=== PATIENT | male | born 2005 | race Hispanic/Latino ===

== ENCOUNTER 2024-08-23 16:13 | Inpatient (IN) | payer OTHER ==
[~2024-08-23] VITALS: Ht 180.3 cm; Wt 73.0 kg
[2024-08-23 17:06] LABS: HEMATOCRIT 42.5 % (42.0-52.0); HEMOGLOBIN 14.8 g/dl (13.5-17.5); MEAN CORPUSCULAR HEMOGLOBIN 32.1 pg (27.0-33.0); MEAN CORPUSCULAR HGB CONC 34.8 g/dl (32.0-36.5); MEAN CORPUSCULAR VOLUME 92.2 fl (80.0-96.0); PLATELET COUNT, AUTOMATED 275 10^3/uL (150-450); RED BLOOD COUNT 4.61 10^6/uL (4.30-6.10); WHITE BLOOD COUNT 7.7 10^3/uL (4.0-10.0)
[2024-08-23] MEDS ORDERED: HOME MED LIST COMPLETE! XX SCH (17:15)
[2024-08-23 17:19] LABS: AMPHETAMINES LEVEL URINE NEGATIVE (NEGATIVE); BARBITURATES URINE NEGATIVE (NEGATIVE)
[2024-08-23 17:20] LABS: BENZODIAZEPINES URINE NEGATIVE (NEGATIVE); CANNABINOIDS URINE NEGATIVE (NEGATIVE); COCAINE METABOLITE URINE NEGATIVE (NEGATIVE); METHADONE URINE NEGATIVE (NEGATIVE); OPIATES URINE NEGATIVE (NEGATIVE); PHENCYCLIDINE URINE NEGATIVE (NEGATIVE)
[2024-08-23 17:21] LABS: ETHYL ALCOHOL (ETHANOL) < 0.003 % (0.000-0.010)
[2024-08-23 17:22] LABS: ALBUMIN 4.1 G/DL (3.2-5.2); ALKALINE PHOSPHATASE 84 U/L (40-129); ALT/SGPT 19 U/L (7.0-40); AST/SGOT 16 U/L (<34); BILIRUBIN,DIRECT 0.6 MG/DL (<0.4); BILIRUBIN,TOTAL 2.1 MG/DL (0.3-1.2); BLOOD UREA NITROGEN 17 MG/DL (9-23); CALCIUM LEVEL 9.2 MG/DL (8.5-10.1); CARBON DIOXIDE LEVEL 23 MMOL/L (20-31); CHLORIDE LEVEL 107 MMOL/L (98-107); CREATININE FOR GFR 0.97 MG/DL (0.70-1.30); GLOMERULAR FILTRATION RATE > 60.0 (>60); GLUCOSE, FASTING 85 MG/DL (60-100); POTASSIUM SERUM 3.8 MMOL/L (3.5-5.1); SALICYLATE LEVEL < 3.0 MG/DL (<30); SODIUM LEVEL 140 MMOL/L (136-145); TOTAL PROTEIN 7.2 G/DL (5.7-8.2)
[2024-08-23 17:27] LABS: THYROID STIMULATING HORMONE 0.958 uIU/ML (0.55-4.78)
[2024-08-24 05:07] LABS: APPEARANCE, URINE CLEAR (CLEAR); BACTERIA, URINE AUTO NEGATIVE (NEGATIVE); BILIRUBIN, URINE AUTO NEGATIVE (NEGATIVE); BLOOD, URINE BLOOD NEGATIVE (NEGATIVE); COLOR, URINE YELLOW (YELLOW); GLUCOSE, URINE (UA) AUTO NEGATIVE (NEGATIVE); KETONE, URINE AUTO NEGATIVE (NEGATIVE); LEUKOCYTE ESTERASE, URINE AUTO NEGATIVE (NEGATIVE); MUCUS, URINE SMALL (NEGATIVE); NITRITE, URINE AUTO NEGATIVE (NEGATIVE); PROTEIN, URINE AUTO NEGATIVE (NEGATIVE); RBC, URINE AUTO 0 /HPF (0-3); SQUAMOUS EPITHELIAL CELL UR AU 0 /HPF (0-6); WBC, URINE AUTO 0 /HPF (0-3)
[2024-08-24] MEDS ORDERED: MAALOX 30 ML SUSP *UDC PO PRN (13:20)
[2024-08-24] MEDS ORDERED: ACETAMINOPHEN 325 MG TAB PO PRN (13:20)
[2024-08-24] MEDS ORDERED: MOM 30ML SUSPENSION UDC PO PRN (13:20)
[2024-08-24] MEDS ORDERED: OLANZapine 5 MG TAB PO PRN (13:20)
[2024-08-24] MEDS ORDERED: LORazepam 1 MG TAB PO PRN (13:20)
[2024-08-24] MEDS: NICOTINE 14 MG/24 HR TRANSDERMAL TD ONE (15:38)
[2024-08-25 06:35] VITALS: BP 111/55; TEMP 97.7; O2SAT 98
[2024-08-25] MEDS: FLUZONE VACCINE TRIVALENT PF(2024-25) 0.5ML SYRINGE IM.IMMUN ONE (08:12)
[2024-08-25] MEDS: NICOTINE 14 MG/24 HR TRANSDERMAL TD SCH (08:14)
[2024-08-25] MEDS: diphenhydrAMINE 25MG CAP PO PRN (09:43)
[2024-08-26 06:51] VITALS: BP 126/75; TEMP 96.8; O2SAT 100
[2024-08-26] MEDS: ESCITALOPRAM OXALATE 5MG TABLET (LEXAPRO) PO SCH (15:09)
[2024-08-26 15:54] VITALS: BP 124/71; TEMP 97.9; O2SAT 100
[2024-08-26] MEDS: traZODone 50 MG TAB PO PRN (20:24)
[2024-08-27 06:59] VITALS: BP 119/71; TEMP 97.5; O2SAT 100
[2024-08-27 15:12] VITALS: BP 122/71; TEMP 97.8; O2SAT 99
[2024-08-28 06:39] VITALS: BP 123/75; TEMP 96.6; O2SAT 100
[2024-08-28] MEDS ORDERED: LEXA5TAB13 PO (10:50)
[2024-08-28] MEDS ORDERED: DIPH-435 PO (10:50)
[2024-08-28] MEDS ORDERED: TRAZ-252 PO (10:50)
== END 2024-08-28 12:19 | disposition home or self-care (01) | DRG 881 ==
LOC: M ED 16:13 → M ED INP 08-24 13:16 → M PSY 08-24 14:18
PROVIDERS: ADMIT Internal Medicine; ATTEND Internal Medicine
DX: F32.A Depression, unspecified (principal); R45.851 Suicidal ideations; F43.10 Post-traumatic stress disorder, unspecified; F17.200 Nicotine dependence, unspecified, uncomplicated; F41.9 Anxiety disorder, unspecified